=== PATIENT | male | born 1985 | race Caucasian/White ===

== ENCOUNTER → 2023-12-24 17:12 | Outpatient (REF) | payer OTHER, SELFPAY | LOC: RAD 17:12 | PROVIDERS: ATTENDING PHYSICIAN Internal Medicine | DX: R05.3 Chronic cough (principal) | CPT/HCPCS: 71046 ==

== ENCOUNTER 2024-03-09 11:24 | Outpatient (RCR) | payer OTHER, SELFPAY | END 2024-03-09 23:59 | disposition home or self-care (01) | LOC: RPT 11:24 | PROVIDERS: ATTENDING PHYSICIAN Internal Medicine | DX: M25.511 Pain in right shoulder (principal) | CPT/HCPCS: 97112; 97161 ==